=== PATIENT | female | born 1970 | race Caucasian/White ===

== ENCOUNTER 2022-04-25 02:11 | Emergency (ER) | payer OTHER ==
[2022-04-25] MEDS ORDERED: Cefdinir 300 MG Cap PO ONE (04:07)
== END 2022-04-25 04:16 | disposition home or self-care (01) ==
LOC: JD.ED 02:11
DX: N39.0 Urinary tract infection, site not specified (principal); Z88.8 Allergy status to other drugs, medicaments and biological substances
CPT/HCPCS: 36415; 74176; 80053; 81001; 85025; 87086; 87088; 87186; 99284; A9270; 99283

== ENCOUNTER 2022-08-12 22:40 | Emergency (ER) | payer OTHER ==
[2022-08-12] MEDS ORDERED: Acetaminophen/HYDROcodone 325-10 MG Tab PO ONE (23:42)
== END 2022-08-13 00:17 | disposition home or self-care (01) ==
LOC: JD.ED 22:40
DX: S09.90XA Unspecified injury of head, initial encounter (principal); S16.1XXA Strain of muscle, fascia and tendon at neck level, initial encounter; S39.012A Strain of muscle, fascia and tendon of lower back, initial encounter; E03.9 Hypothyroidism, unspecified; Z88.8 Allergy status to other drugs, medicaments and biological substances; Z79.899 Other long term (current) drug therapy; Z86.16 Personal history of COVID-19; W18.30XA Fall on same level, unspecified, initial encounter; Y92.89 Other specified places as the place of occurrence of the external cause; Y99.0 Civilian activity done for income or pay
CPT/HCPCS: 70450; 70450-26; 99283